=== PATIENT | male | born 1980 | race African-American/Black ===

== ENCOUNTER 2019-05-11 13:08 | Emergency (ER) | payer OTHER ==
[2019-05-11 13:40] VITALS: BP 114/82; PULSE 63; TEMP 98.3; BMI 20.1
--- NOTE | 2019-05-11 14:54 | PDOC ---
History of Present Illness - General Chief Complaint: Cold Symptoms Stated Complaint: COLD SYMPTOMS Time Seen by Provider: 05/11/19 14:49 History Source: Patient - History of Present Illness Initial Comments: 05/11/19 15:47 Chief complaint: Sneezing Patient is a healthy 38-year-old male who has having "allergy symptoms", sneezing who works for the [employer] department for the formerly [employer] and was told to go home given the concern for covid 19. Patient has no fever or shortness of breath. Patient appears well GENERAL/CONSTITUTIONAL: No fever, weakness. dizziness HEAD, EYES, EARS, NOSE AND THROAT: No change in vision. No ear pain or discharge. No sore throat. CARDIOVASCULAR: No chest pain RESPIRATORY: No shortness of breath or cough GASTROINTESTINAL: No pain, nausea, vomiting, diarrhea or constipation GENITOURINARY: No dysuria MUSCULOSKELETAL: No neck or back pain SKIN: No rash NEUROLOGIC: No headache, vertigo, loss of consciousness, or loss of sensation. GENERAL: The patient is awake, alert, and fully oriented, in no acute distress. HEAD: Normal with no signs of trauma. EYES: Pupils equal, round and reactive to light, sclera anicteric, conjunctiva clear. ENT: pharynx: no erythema, no exudate, uvula midline NECK: supple CHEST: clear, nontender, rr ABD: soft, nontender BACK: no tenderness or signs of injury EXTREMITIES: Normal range of motion, no edema. NEUROLOGICAL: Normal speech, normal gait. SKIN: Warm, Dry Past History - Past Medical History Allergies/Adverse Reactions: Allergies Allergy/AdvReac Type Severity Reaction Status Date / Time No Known Drug Allergies Allergy Verified 05/11/19 13:36 Home Medications: Ambulatory Orders NK [No Known Home Medication] 05/11/19 COPD: No - Surgical History Abdominal Surgery: Yes (rt [email or web address] 09/13/13) - Psycho Social/Smoking Cessation Hx Smoking History: Unknown if ever smoked Have you smoked in the past 12 months: No Number of Cigarettes Smoked Daily: 0 Hx Alcohol Use: No Drug/Substance Use Hx: No Substance Use Type: None Hx Substance Use Treatment: No *Physical Exam - Vital Signs Last Vital Signs Temp Pulse Resp BP Pulse Ox 98.3 F 63 18 114/82 100 05/11/19 13:36 05/11/19 13:36 05/11/19 13:36 05/11/19 13:36 05/11/19 13:36 Medical Decision Making - Medical Decision Making 05/11/19 15:49 Patient came to the ER because his job sent him home over concern of his sneezing and runny nose and the outbreak of covid 19. Patient does not look acutely ill. No further work-up indicated. Patient has no risk factors. Discussed issues, findings, results, applicable medications and treatments and follow-up. All these were understood and all questions were answered Discharge - Discharge Information Problems reviewed: Yes Clinical Impression/Diagnosis: Sneezing Condition: Stable Disposition: HOME - Admission No - Follow up/Referral - Patient Discharge Instructions Additional Instructions: Drink 2-3 L of water daily You do not have a fever today. Return to the ER if you feel sicker - Post Discharge Activity
== END 2019-05-11 15:02 | disposition home or self-care (01) ==
LOC: JERFT 13:08
DX: R06.7 Sneezing (principal)
CPT/HCPCS: 99281-25